=== PATIENT | male | born 1945 | race Two or more races ===

== ENCOUNTER 2023-10-20 11:11 | Emergency (ER) | payer OTHER ==
[~2023-10-20] VITALS: Ht 167.6 cm; Wt 71.7 kg
[2023-10-20] MEDS ORDERED: ATORVASTATIN CA10 MG PO (11:21)
[2023-10-20] MEDS ORDERED: ATENOLOL50 MG PO (11:21)
[2023-10-20] MEDS ORDERED: AMLODIPINE BESYL5 MG PO (11:21)
[2023-10-20] MEDS ORDERED: LISINOPRIL40 MG PO (11:21)
[2023-10-20] MEDS ORDERED: HYDROCHLOROTHIA25 MG PO (11:21)
[2023-10-20] MEDS ORDERED: ONDANSETRON HCL 2 MG/ML VIAL IV ONE (14:15)
[2023-10-20] MEDS ORDERED: FAMOTIDINE/PF 20 MG/2 ML VIAL IV PUSH ONE (14:15)
[2023-10-20] MEDS ORDERED: 0.9 % SODIUM CHLORIDE 1,000 ML IV SCH (14:15)
[2023-10-20] MEDS ORDERED: THIAMINE HCL 100 MG/ML 2 ML VIAL IV ONE (14:15)
[2023-10-20 14:46] LABS: HEMATOCRIT 34.7 % (39.0-48.0); MEAN CELL VOLUME 103.7 fL (80.0-100.00); MEAN CORPUSCULAR HEMOGLOBIN 35.8 pg (27.00-32.0); MEAN CORPUSCULAR HGB CONC 34.5 g/dl (32.0-36.0); PLATELET COUNT 214 K/uL (150-450); RED BLOOD COUNT 3.35 M/uL (4.00-6.00); RED CELL DISTRIBUTION WIDTH 14.1 % (11.5-14.5)
[2023-10-20 14:51] LABS: URINE APPEARANCE Clear; URINE BILIRRUBIN Negative (NEGATIVE); URINE BLOOD Negative; URINE COLOR Yellow; URINE EPITHELIAL CELLS 1.8 uL (0.0-38.8); URINE GLUCOSE Negative (NEGATIVE); URINE LEUKOCYTE Negative; URINE NITRATE Negative; URINE PROTEIN Trace (NEGATIVE); URINE UROBILINOGEN 0.2 E.U./dl; URINE WBC 1.8 uL (0.0-23.2)
[2023-10-20 14:59] LABS: URINE RBC 1.1 uL (0.0-20.8)
[2023-10-20 15:01] LABS: INR 0.99; PARTIAL THROMBOPLASTIN TIME 22.3 SECONDS (22.0-34.0); PROTHROMBIN TIME 10.4 SECONDS (9.0-11.5)
[2023-10-20 15:08] LABS: ALBUMIN 3.9 gm/dL (3.4-5.0); BILIRUBIN TOTAL 0.75 mg/dL (0.3-1.2); BILIRUBIN,CONJUGATED 0.25 mg/dL (0.0-0.2); BILIRUBIN,UNCONJUGATED 0.5 mg/dL (0.0-0.6); CALCIUM 9.5 mg/dL (8.5-10.1); CREATININE SERUM 1.76 mg/dL (0.70-1.30); GFR 37.84; GLOBULINA 4.3 G/DL (2.4-3.5); POTASSIUM 5.59 mEq/L (3.5-5.1); TOTAL PROTEIN 8.2 gm/dL (6.4-8.2)
== END 2023-10-20 18:34 | disposition home or self-care (01) ==
LOC: ER 11:11
PROVIDERS: Emergency Medicine
DX: K29.70 Gastritis, unspecified, without bleeding (principal); R11.10 Vomiting, unspecified; I10 Essential (primary) hypertension; E11.9 Type 2 diabetes mellitus without complications
CPT/HCPCS: 36415; 93005; 96365; 96366; 99282; J2405; J3490 ×2; J7030